=== PATIENT | female | born 1945 | race Two or more races ===

== ENCOUNTER 2018-02-17 07:56 | Inpatient (IN) | payer OTHER ==
[~2018-02-17] VITALS: Ht 154.9 cm; Wt 76.2 kg
[~2018-02-17 07:56] MED LIST: COZAAR25 MG PO; GABAPENTIN800 MG PO; HUMALOG100 UNIT/1; LANTUS SOL100 UNIT/1; NORVASC5 MG PO; [UNRECOGNIZED DRUG - OTHER]
[2018-02-17] MEDS ORDERED: COZAAR100 MG (08:38)
[2018-02-17] MEDS ORDERED: NORVASC5 MG (08:38)
[2018-02-17] MEDS ORDERED: LANTUS SOL100 UNIT/1 (08:39)
[2018-02-17] MEDS ORDERED: HUM (08:39)
[2018-02-26] MEDS ORDERED: TRAM1TAB98 PO (09:16)
[2018-02-26] MEDS ORDERED: XARELTO10 MG PO (09:16)
[2018-02-26] MEDS ORDERED: INTEGRA PLUS C1 EACH PO (09:16)
== END 2018-02-26 13:53 | DRG 470 ==
LOC: EDSTATUS 09:45 → ADM 09:45 → SURG 02-23 05:55 → O/R 02-23 05:55 → SURH 02-23 09:45 → SURG 02-23 16:05
PROVIDERS: Orthopaedic Surgery Sports Medicine
PROC: 0SRD0J9 Replacement of Left Knee Joint with Synthetic Substitute, Cemented, Open Approach (ICD-10-PCS; principal; 2018-02-23 12:30)
DX: M17.12 Unilateral primary osteoarthritis, left knee (principal); I11.9 Hypertensive heart disease without heart failure; D64.89 Other specified anemias; E10.9 Type 1 diabetes mellitus without complications

== ENCOUNTER 2018-06-19 09:14 | Day surgery (SDC) | payer OTHER ==
[~2018-06-19 09:14] MED LIST changes: +COZAAR100 MG; +HUM; +INTEGRA PLUS C1 EACH PO; +NORVASC5 MG; +TRAM1TAB98 PO; +XARELTO10 MG PO
== END 2018-06-19 18:00 | disposition home or self-care (01) ==
LOC: AMB-ENDOS 09:14
DX: K57.32 Diverticulitis of large intestine without perforation or abscess without bleeding (principal); K64.1 Second degree hemorrhoids

== ENCOUNTER 2018-07-06 19:57 | Emergency (ER) | payer OTHER ==
[~2018-07-06] VITALS: Ht 154.9 cm; Wt 75.7 kg
== END 2018-07-06 23:57 | disposition home or self-care (01) ==
LOC: ER 19:57
DX: K29.60 Other gastritis without bleeding (principal)

== ENCOUNTER 2018-07-10 00:47 | Emergency (ER) | payer OTHER ==
[~2018-07-10] VITALS: Ht 154.9 cm; Wt 74.8 kg
[2018-07-10] MEDS ORDERED: PROTONIX40 MG PO (10:50)
== END 2018-07-10 12:19 | disposition home or self-care (01) ==
LOC: ER 00:47
DX: K29.70 Gastritis, unspecified, without bleeding (principal)

== ENCOUNTER 2019-01-17 01:58 | Emergency (ER) | payer OTHER ==
[~2019-01-17] VITALS: Ht 157.5 cm; Wt 80.3 kg
[~2019-01-17 01:58] MED LIST changes: +PROTONIX40 MG PO
[2019-01-17] MEDS ORDERED: CARAFATE1 GM PO (07:01)
== END 2019-01-17 07:45 | disposition home or self-care (01) ==
LOC: ER 01:58
DX: K29.60 Other gastritis without bleeding (principal)

== ENCOUNTER 2019-01-17 13:20 | Inpatient (IN) | payer OTHER ==
[~2019-01-17] VITALS: Ht 157.5 cm; Wt 80.3 kg
[~2019-01-17 13:20] MED LIST changes: +CARAFATE1 GM PO
--- NOTE | 2019-01-17 13:52 | NUR ---
SE RECIBE PTE ALERTA Y ORIENTADA X3,REFIERE DOLOR ABDOMINAL VOMITO,REFIERE QUE ESTUVO EN LA MADRUGADA DE HOY NO VELEZ TENIDO ALIVIO.
--- NOTE | 2019-01-17 14:15 | NUR ---
EVALUADO POR QUIEN ORDENA TX MEDICO DEL CUAL ORIENTA PACIENTE DEL MISMO. REFIERE COMPRENDER. COLECTA MUESTRAS DE LABORATORIOS Y ADMINISTRA MEDICAMENTO GENOVEVA ORDEN MEDICA BAJO MEDIDAS ASEPTICAS. NOTIFICA ESTUDIOS XRAYS,CT ABD/PELV A PERSONAL DE TURNO. PACIENTE TOLERA PROCEDIMIENTOS.
--- NOTE | 2019-01-17 23:24 | NUR ---
SE COLOCA NGT EN CALEB TORRES.
--- NOTE | 2019-01-18 01:07 | NUR ---
SE COLOCA APTE EN CAMA K-4 Y SE CONECTA A SUCCION INTERMITENTE POR IMANI DE
--- NOTE | 2019-01-18 07:12 | NUR ---
SE RECIB EPTE DEL TURNO ANTERIOR, ALERTA Y ORIENTADA X 3 ESFERAS, EN CAMA NIVEL MAS BAJO ATKINS DE IDENTIFICACION Y BARAMDAS ELEVADAS POR PRECAUCION. SE OBSERVA CON BUEN PATRON RESPIRATORIO Y PIEL TIBIA AL TACTO. IV EN BRAZO RT #20 PATENTE Y YEFRI DE EDEMA O ERITEMA CON 0.9% NSS @125 ML/HR. SE OBSERVA NGT EN FOSA NASAL LT CONECTADA A SUCCION INTERMITENTE.
== END 2019-01-26 14:45 | disposition home or self-care (01) | DRG 336 ==
LOC: ER 13:20 → SEC-K 01-18 09:26 → SURH 01-18 09:26
PROVIDERS: Surgery; ADMIT Colon & Rectal Surgery
PROC: 0DH67UZ Insertion of Feeding Device into Stomach, Via Natural or Artificial Opening (ICD-10-PCS; 2019-01-18)
PROC: 3E0G76Z Introduction of Nutritional Substance into Upper GI, Via Natural or Artificial Opening (ICD-10-PCS; 2019-01-18)
PROC: 02HV33Z Insertion of Infusion Device into Superior Vena Cava, Percutaneous Approach (ICD-10-PCS; 2019-01-18)
PROC: 3E0336Z Introduction of Nutritional Substance into Peripheral Vein, Percutaneous Approach (ICD-10-PCS; 2019-01-19)
PROC: 0WQF4ZZ Repair Abdominal Wall, Percutaneous Endoscopic Approach (ICD-10-PCS; 2019-01-22)
PROC: 0DNL4ZZ Release Transverse Colon, Percutaneous Endoscopic Approach (ICD-10-PCS; principal; 2019-01-22 10:00)
DX: K43.0 Incisional hernia with obstruction, without gangrene (principal); K56.51 Intestinal adhesions [bands], with partial obstruction; N17.8 Other acute kidney failure; K57.32 Diverticulitis of large intestine without perforation or abscess without bleeding; E44.0 Moderate protein-calorie malnutrition; K43.6 Other and unspecified ventral hernia with obstruction, without gangrene; I11.9 Hypertensive heart disease without heart failure; K63.89 Other specified diseases of intestine; E86.0 Dehydration; E87.8 Other disorders of electrolyte and fluid balance, not elsewhere classified; E11.65 Type 2 diabetes mellitus with hyperglycemia; E11.22 Type 2 diabetes mellitus with diabetic chronic kidney disease; I13.10 Hypertensive heart and chronic kidney disease without heart failure, with stage 1 through stage 4 chronic kidney disease, or unspecified chronic kidney disease; N18.2 Chronic kidney disease, stage 2 (mild); Z79.4 Long term (current) use of insulin

== ENCOUNTER 2019-06-21 06:29 | Emergency (ER) | payer OTHER ==
[~2019-06-21] VITALS: Ht 157.5 cm; Wt 76.2 kg
== END 2019-06-21 13:42 | disposition home or self-care (01) ==
LOC: ER 06:29
DX: K57.30 Diverticulosis of large intestine without perforation or abscess without bleeding (principal); R10.84 Generalized abdominal pain

== ENCOUNTER 2020-03-29 19:41 | Emergency (ER) | payer OTHER ==
[~2020-03-29] VITALS: Ht 157.5 cm; Wt 75.3 kg
[2020-03-29] MEDS ORDERED: MIRALAX17 GM (20:02)
[2020-03-30] MEDS ORDERED: ULTRAM50 MG PO (01:17)
[2020-03-30] MEDS ORDERED: CIPRO500 MG PO (01:35)
== END 2020-03-30 01:40 | disposition home or self-care (01) ==
LOC: ER 19:41
DX: R10.31 Right lower quadrant pain (principal); Z03.818 Encounter for observation for suspected exposure to other biological agents ruled out

== ENCOUNTER 2020-05-26 21:51 | Emergency (ER) | payer OTHER ==
[~2020-05-26] VITALS: Ht 157.5 cm; Wt 74.8 kg
[~2020-05-26 21:51] MED LIST changes: +CIPRO500 MG PO; +MIRALAX17 GM; +ULTRAM50 MG PO
== END 2020-05-26 23:37 | disposition home or self-care (01) ==
LOC: ER 21:51
DX: S52.592A Other fractures of lower end of left radius, initial encounter for closed fracture (principal); M12.532 Traumatic arthropathy, left wrist; W18.09XA Striking against other object with subsequent fall, initial encounter; Y93.89 Activity, other specified; Y92.89 Other specified places as the place of occurrence of the external cause; Y99.8 Other external cause status

== ENCOUNTER 2020-06-05 05:20 | Day surgery (SDC) | payer OTHER ==
[2020-06-05] MEDS ORDERED: OXYC1TAB9 PO (10:12)
[2020-06-05] MEDS ORDERED: DUI500 PO (10:12)
== END 2020-06-05 12:35 | disposition home or self-care (01) ==
LOC: CIR.AMB 05:20
PROVIDERS: ATTEND Orthopaedic Surgery Sports Medicine
DX: S52.532B Colles' fracture of left radius, initial encounter for open fracture type I or II (principal); Z20.822 Contact with and (suspected) exposure to COVID-19
CPT/HCPCS: 25609; C1776

== ENCOUNTER 2020-11-24 08:23 | Outpatient (CLI) | payer OTHER ==
[~2020-11-24 08:23] MED LIST changes: +DUI500 PO; +OXYC1TAB9 PO
== END 2020-11-24 08:33 | disposition home or self-care (01) ==
LOC: MRI 08:23
DX: M48.07 Spinal stenosis, lumbosacral region (principal); M54.5 Low back pain
CPT/HCPCS: 72148

== ENCOUNTER 2021-08-31 06:47 | Outpatient (CLI) | payer OTHER | END 2021-08-31 06:54 | disposition home or self-care (01) | LOC: LAB 06:47 | PROVIDERS: ATTEND Internal Medicine Hematology & Oncology | DX: D50.9 Iron deficiency anemia, unspecified (principal); I10 Essential (primary) hypertension; E11.9 Type 2 diabetes mellitus without complications; E78.2 Mixed hyperlipidemia ==

== ENCOUNTER 2022-05-02 06:44 | Outpatient (CLI) | payer OTHER | END 2022-05-02 06:53 | disposition home or self-care (01) | LOC: LAB 06:44 | PROVIDERS: ATTEND Internal Medicine Geriatric Medicine | DX: D50.8 Other iron deficiency anemias (principal); R79.9 Abnormal finding of blood chemistry, unspecified; I10 Essential (primary) hypertension; R74.02 Elevation of levels of lactic acid dehydrogenase [LDH]; K76.89 Other specified diseases of liver; D51.8 Other vitamin B12 deficiency anemias; D63.1 Anemia in chronic kidney disease; C50.919 Malignant neoplasm of unspecified site of unspecified female breast; R97.8 Other abnormal tumor markers; C25.9 Malignant neoplasm of pancreas, unspecified; C56.9 Malignant neoplasm of unspecified ovary; R97.1 Elevated cancer antigen 125 [CA 125]; R97.0 Elevated carcinoembryonic antigen [CEA]; Z80.3 Family history of malignant neoplasm of breast; E78.2 Mixed hyperlipidemia; E08.42 Diabetes mellitus due to underlying condition with diabetic polyneuropathy ==

== ENCOUNTER 2022-07-12 08:01 | Outpatient (CLI) | payer OTHER | END 2022-07-12 08:10 | disposition home or self-care (01) | LOC: SONOGRAMA 08:01 | PROVIDERS: ATTEND Internal Medicine Geriatric Medicine | DX: R10.9 Unspecified abdominal pain (principal); K80.80 Other cholelithiasis without obstruction ==

== ENCOUNTER 2022-08-08 07:11 | Outpatient (CLI) | payer OTHER | END 2022-08-08 07:12 | disposition home or self-care (01) | LOC: NUCLEAR 07:11 | PROVIDERS: ATTEND Internal Medicine Geriatric Medicine | DX: K81.1 Chronic cholecystitis (principal) | CPT/HCPCS: 78227; A9537; J2805 ==

== ENCOUNTER 2022-10-18 06:18 | Outpatient (CLI) | payer OTHER | END 2022-10-18 06:19 | disposition home or self-care (01) | LOC: LAB 06:18 | PROVIDERS: ATTEND Internal Medicine Hematology & Oncology | DX: D50.8 Other iron deficiency anemias (principal); R79.9 Abnormal finding of blood chemistry, unspecified; I10 Essential (primary) hypertension; R74.02 Elevation of levels of lactic acid dehydrogenase [LDH]; K76.89 Other specified diseases of liver; D51.8 Other vitamin B12 deficiency anemias; D63.1 Anemia in chronic kidney disease; C50.919 Malignant neoplasm of unspecified site of unspecified female breast; R97.8 Other abnormal tumor markers; C25.9 Malignant neoplasm of pancreas, unspecified; C56.9 Malignant neoplasm of unspecified ovary; R97.1 Elevated cancer antigen 125 [CA 125]; R97.0 Elevated carcinoembryonic antigen [CEA]; Z80.3 Family history of malignant neoplasm of breast; E78.2 Mixed hyperlipidemia; E08.42 Diabetes mellitus due to underlying condition with diabetic polyneuropathy ==

== ENCOUNTER 2022-10-18 09:52 | Outpatient (CLI) | payer OTHER | END 2022-10-18 10:01 | disposition home or self-care (01) | LOC: SONOGRAMA 09:52 | PROVIDERS: ATTEND Internal Medicine Geriatric Medicine | DX: M75.101 Unspecified rotator cuff tear or rupture of right shoulder, not specified as traumatic (principal); M75.01 Adhesive capsulitis of right shoulder; M75.41 Impingement syndrome of right shoulder ==